=== PATIENT | male | born 1950 | race Caucasian/White ===

== ENCOUNTER 2016-09-20 19:37 | Emergency (ER) | payer OTHER ==
[2016-09-20 19:51] VITALS: TEMP 98.2
--- NOTE | 2016-09-20 19:56 | EDPHY ---
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 He was originally prescribed 10mg Lisinopril QD to treat mild hypertension in June by his PCP, Dr. Trey Nguyen. He reports that this dosage effectively managed his hypertension until late August. He has been increasing his dosage to 30mg daily since last Sunday without effective alleviation of his elevated blood pressure. He denies any complaints associated with his hypertension. REVIEW OF SYSTEMS: Constitutional: No fever, no chills Eyes: No visual changes ENT: No sore throat Respiratory: No cough, no shortness of breath Cardiac: No chest pain Gastrointestinal: No nausea, no vomiting, no abdominal pain Genitourinary: No hematuria, no dysuria Musculoskeletal: No leg pain or swelling Skin: No rash Neurological: No headache, no numbness, no weakness Psychiatric: No depression Past Medical/Surgical History: Hypertension, pheochromocytoma, left adrenalectomy, Rocha's cyst - right knee. Social History: at bedside, former smoker Smoking Status: Former smoker Physical Exam: General Appearance: Alert, no distress Eyes: Pupils equal and round, no conjunctival pallor or injection ENT, Mouth: Mucous membranes moist Neck: Normal inspection Respiratory: Lungs are clear to auscultation Cardiovascular: Regular rate and rhythm Gastrointestinal: Abdomen is soft and non- tender Neurological: A&O, nonfocal, normal gait Skin: Warm and dry, no rash Extremities: Nontender, no pedal edema Psychiatric: Mood and affect normal Constitutional: Initial Vital Signs Temperature (C) 36.8 C 09/20/16 19:46 Heart Rate 80 09/20/16 19:46 Respiratory Rate 16 09/20/16 19:46 Blood Pressure 199/107 H 09/20/16 19:46 O2 Sat (%) 95 09/20/16 19:46 O2 Delivery Mode Room Air Allergies/Adverse Reactions: Penicillins Allergy (Verified 07/31/14 18:23) Home Medications: Medication Instructions Recorded Ibuprofen [Motrin (*)] 200 mg PO Q6 PRN 08/03/14 Medical Decision Making - Diagnostics EKG Interpretation: EKG interpreted by me reveals normal sinus rhythm, rate 67, atrial premature complex. ED Course/Re-evaluation: This 66-year-old male presents with increasing hypertension over the past two weeks not effectively managed with increasing dosage of Lisinopril. His hypertension was historically alleviated with 10mg PO Lisinopril daily but has not been managed with up to 30mg Lisinopril QD over the past week. His BP was elevated at 199/107 at triage. He has a history of a pheochromocytoma with left adrenalectomy in 2014. He is asymptomatic at presentation. His exam is benign. He is currently undergoing a 24-hour urine collection per Dr. Flores's recommendation. EKG and labs obtained. Plan for endocrinology consult. 2033: Consultation with Dr. Lira, journeyman electrician pv installer on-call for Dr. Flores' s office. She will review the patient's chart and call back with recommendations for next steps. 2055: I spoke again with Dr. Lira who recommends that we start the patient on hydrochlorothiazide 25mg daily. First dose will be administered in the ED prior to discharge. I discussed Dr. Lira's recommendation with the patient who is agreeable to this. He will follow-up with Dr. Flores in his office as planned. He is given customary return precautions and discharged home in good condition. Differential Diagnosis: Differential diagnosis for the patient's hypertension includes but is not limited to: pheochromocytoma, hyperthyroidism, heart failure, [place], or anxiety. Departure - Departure Disposition: Home, Routine, Self-Care Clinical Impression: Hypertension Qualifiers: Hypertension type: other secondary hypertension Qualified Code(s): I15.8 - Other secondary hypertension Condition: Good Instructions: Hypertension (ED) Additional Instructions: 1. Start taking 25mg hydrochlorothiazide daily as we discussed. This should help manage your blood pressure. 2. Continue to measure your blood pressure regularly. Should you continue to experience elevated blood pressure readings, return to the Emergency Department immediately. You should also return if you experience a severe headache, shakiness, confusion, lightheadedness, chest pain, or other serious concerns. 3. Keep your follow-up appointment with Dr. Flores as planned for further evaluation of your hypertension. Referrals: Itz Nguyen MD [Primary Care Provider] - As per Instructions Joss Lira MD [Medical Doctor] - As per Instructions Report Scribed for: Marya Faye Report Scribed by: Irais Coles Date of Report: 09/20/16 Time of Report: 19:55 Physician Review and Approval Statement: 09/20/16 19:55 Portions of this note were transcribed by a medical policy specialist. I personally performed a history, physical exam, medical decision making, and confirmed accuracy of information the transcribed note.
--- NOTE | 2016-09-20 20:01 | CPEKG ---
Heart Rate: 67 RR Interval: 896 P-R Interval: 160 QRSD Interval: 106 QT Interval: 432 QTC Interval: 456 P Douglass: 35 QRS Douglass: 13 T Wave Douglass: 43 EKG Severity - OTHERWISE NORMAL ECG - EKG Impression: SINUS RHYTHM EKG Impression: ATRIAL PREMATURE COMPLEX Electronically Signed By: Marya Faye 20-Sep-2016 22:12:36
[2016-09-20] MEDS ORDERED: HYDROCHLOROTHIAZIDE 25 MG TAB PO ONE (20:58)
[2016-09-20 21:44] VITALS: BP 180/110; PULSE 65; RESP 18; O2SAT 94
== END 2016-09-20 21:44 | disposition home or self-care (01) ==
DX: I15.8 Other secondary hypertension (principal); Z87.891 Personal history of nicotine dependence